=== PATIENT | female | born 1950 | race Caucasian/White ===

== ENCOUNTER 2023-01-12 17:22 | Emergency (ER) | payer MEDICARE ==
[~2023-01-12] VITALS: Ht 170.2 cm; Wt 90.7 kg
[2023-01-12 17:35] VITALS: BP 180/90
[2023-01-12] MEDS ORDERED: levETIRAcetam 1,000 MG in NACL 0.9% 100 ML IV ONE (17:35)
--- NOTE | 2023-01-12 17:58 | NUR ---
PT PLACED IN BED 09 BY [facility]
[2023-01-12] MEDS ORDERED: levETIRAcetam 100 MG/ML VIAL IV ONE (18:05)
[2023-01-12 18:50] LABS: BASOPHILS % (AUTO) 0.6 % (0.0-2.0); EOSINOPHILS % (AUTO) 0.6 % (0.0-4.0); HEMATOCRIT 44.3 % (36-48); HEMOGLOBIN 14.8 g/dL (12.0-16.0); LYMPHOCYTES % (AUTO) 31.8 % (20.5-51.1); MEAN CORPUSCULAR HEMOGLOBIN 29 pg (27-31); MEAN CORPUSCULAR HGB CONC 34 g/dL (33-37); MEAN CORPUSCULAR VOLUME 87.3 fL (80-94); MONOCYTES # (AUTO) 0.5 K/uL (0.8-1.0); MONOCYTES % (AUTO) 7.3 % (1.7-9.3); NEUTROPHILS # (AUTO) 3.7 K/uL (1.8-7.7); NEUTROPHILS % (AUTO) 59.7 % (42.2-75.2); PLATELET COUNT (AUTO) 155 K/uL (140-450); RED BLOOD CELL COUNT(AUTO) 5.08 MIL/uL (4.20-5.40); WHITE BLOOD COUNT (AUTO) 6.3 K/uL (4.8-10.8)
[2023-01-12 19:18] LABS: ALBUMIN 3.5 g/dL (3.4-5.0); ANION GAP 11.5 (8-16); ASPARTATE AMINOTRANSFERASE 62 U/L (15-37); CARBON DIOXIDE 28.7 mmol/L (21-32); CHLORIDE 103 mmol/L (98-107); CREATININE 1.3 mg/dL (0.6-1.3); GLUCOSE 113 mg/dL (74-106); POTASSIUM 4.2 mmol/L (3.5-5.1); SODIUM SERUM 139 mmol/L (136-145); TOTAL BILIRUBIN 0.4 mg/dL (0.0-1.0); UREA NITROGEN, BLOOD 21 mg/dL (7-18)
--- NOTE | 2023-01-12 19:30 | NUR ---
RECEIVED IN BED 9. PT WAS BIB PARAMEDICS WITH C/O SEIZURES. NO SZ ACTIVITY NOTED AT THIS TIME, PT IS AWAKE, ALERT AND ORIENTED. INCIDENT #[id number]
--- NOTE | 2023-01-12 19:30 | NUR ---
RECEIVED PT AWAKE AND ALERT, IS SLIGHTLY AGITATED, PT STATES, "I FEEL LIKE I'M BEING IGNORED" REASSURANCE GIVEN AND PT ASSISTED WITH COMFORT. PT HAS BEEN CALLING FAMILY WHO IS WAITING IN WAITING ROOM. PTS FAMILY HAS BEEN UPDATED
--- NOTE | 2023-01-12 20:00 | NUR ---
SON VISITING PT AND REASSURANCE BEING GIVEN. PT NO LONGER CONCERNED. ASSISTED PT TO BR WHO AMBULATES WITH STEADY GAIT
--- NOTE | 2023-01-12 21:30 | NUR ---
Patient discharged with v/s stable. Written and verbal after care instructions given and explained. Patient verbalized understanding. Ambulatory with steady gait. All questions addressed prior to discharge. Advised to follow up with PMD.
[2023-01-12 21:33] VITALS: BP 144/73
== END 2023-01-12 21:33 | disposition home or self-care (01) ==
LOC: MED 17:22
DX: R56.9 Unspecified convulsions (principal); R06.02 Shortness of breath; Z86.73 Personal history of transient ischemic attack (TIA), and cerebral infarction without residual deficits; Z79.899 Other long term (current) drug therapy
CPT/HCPCS: 36415; 70450; 80053; 85025; 96365; 99285; J1953